=== PATIENT | male | born 1980 | race African-American/Black ===

== ENCOUNTER 2020-02-11 04:00 | Emergency (ER) | payer BC, SELFPAY ==
[2020-02-11 04:31] LABS: #Basophils 0.1 thou/uL (0.0-0.2); #Eosinphils 0.1 thou/uL (0.0-0.7); #Lymphocytes 1.5 thou/uL (1.20-3.40); #Monocytes 0.5 thou/uL (0.11-0.59); #Neutrophils 3.4 thou/uL (1.40-6.50); %Basophils 1.2 % (0.0-1.0); %Eosinophils 2.2 % (0.0-10.0); %Lymphocytes 27.9 % (21.0-51.0); %Monocytes 8.1 % (0.0-10.0); %Neutrophils 60.7 % (42.0-75.0); Mean Corpuscular HGB CONC 33.1 g/dL (32.0-36.0); Mean Corpuscular Hemoglobin 32.3 pg (27.0-31.0); Mean Corpuscular Volume 97.4 fL (78.0-98.0); Platelet Count 221 thou/uL (130-400); Red Blood Cell (RBC) Count 4.03 mill/uL (4.70-6.10); White Blood Cell (WBC) Count 5.5 thou/uL (4.8-10.8)
[2020-02-11 05:05] LABS: ALT (SGPT) 17 U/L (8-55); AST (SGOT) 22 U/L (5-34); Albumin 4.1 g/dL (3.5-5.0); Alkaline Phosphatase 69 U/L (40-110); Anion Gap 11 mmol/L (10-20); BUN (Urea Nitrogen) 13 mg/dL (8.9-20.6); Bilirubin, Total 0.4 mg/dL (0.2-1.2); Calc. Creatinine Clearance 0 mL/min (70-130); Calcium 9.2 mg/dL (7.8-10.44); Carbon Dioxide 23 mmol/L (22-29); Chloride 107 mmol/L (98-107); Estimated GFR-MDRD Greater than 90; Globulin 2.8 g/dL (2.4-3.5); Glucose 99 mg/dL (70-105); Potassium 3.4 mmol/L (3.5-5.1); Protein, Total 6.9 g/dL (6.0-8.3); Sodium 138 mmol/L (136-145)
--- NOTE | 2020-02-11 07:31 | RAD ---
CHEST 1 VIEW: INDICATION: Left-sided chest pain. COMPARISON: Prior exam dated 02/08/2020. FINDINGS: The lungs are clear. Heart size is normal. No pleural effusion is evident. No acute osseous abnorm ality is noted. IMPRESSION: No acute cardiopulmonary abnormality. The examination appears similar to the comparison study. POS: BH
--- NOTE | 2020-02-14 14:53 | EKG ---
Test Reason : Blood Pressure : / mmHG Vent. Rate : 070 BPM Atrial Rate : 070 BPM P-R Int : 138 ms QRS Dur : 084 ms QT Int : 360 ms P-R-T Axes : 061 017 023 degrees QTc Int : 388 ms Normal sinus rhythm with sinus arrhythmia No STEMI Normal ECG Confirmed by LAURIE ROMERO M.D. ([id number]), electronic news gathering editor YAMILETH TRONCOSO ([id number] on 02/14/2020 2:52:47 PM Referred By: Confirmed By:LAURIE ROMERO M.D.
== END 2020-02-11 08:29 | disposition home or self-care (01) ==
LOC: ERS 04:00
DX: R07.89 Other chest pain (principal); F17.210 Nicotine dependence, cigarettes, uncomplicated
CPT/HCPCS: 36415; 71045; 80053; 84484; 85025; 93005

== ENCOUNTER 2022-10-12 23:25 | Emergency (ER) | payer OTHER, BC ==
[~2022-10-12 23:25] MED LIST: Iopamidol-370 76% 500 ML 1 ML ONE
[2022-10-12 23:53] LABS: #Eosinphils 0.1 thou/uL (0.0-0.7); #Lymphocytes 1.8 thou/uL (1.20-3.40); #Monocytes 0.3 thou/uL (0.11-0.59); #Neutrophils 2.8 thou/uL (1.40-6.50); %Basophils 0.8 % (0.0-1.0); %Eosinophils 2.4 % (0.0-10.0); %Lymphocytes 35.4 % (21.0-51.0); %Monocytes 6.8 % (0.0-10.0); %Neutrophils 54.6 % (42.0-75.0); Hemoglobin 14.3 g/dL (14.0-18.0); Mean Corpuscular HGB CONC 33.7 g/dL (32.0-36.0); Mean Corpuscular Hemoglobin 33.8 pg (27.0-31.0); Mean Platelet Volume 7.4 fL (7.4-10.4); Platelet Count 203 10x3/uL (130-400); RBC Distribution Width 12.2 % (11.5-14.5); Red Blood Cell (RBC) Count 4.24 mill/uL (4.70-6.10)
[2022-10-13 00:05] LABS: INR-International Normal Ratio 1.1; PTT 30.4 sec (22.9-36.1); Prothrombin Time 14.2 sec (12.0-14.7)
[2022-10-13 00:14] LABS: ALT (SGPT) 23 U/L (8-55); AST (SGOT) 20 U/L (5-34); Albumin 4.3 g/dL (3.5-5.0); Alcohol Less than 10 mg/dL (Less than 10); Alkaline Phosphatase 64 U/L (40-110); Anion Gap 14 mmol/L (10-20); BUN (Urea Nitrogen) 11 mg/dL (8.9-20.6); Bilirubin, Total 0.7 mg/dL (0.2-1.2); Calc. Creatinine Clearance 0 mL/min (70-130); Calcium 9.8 mg/dL (7.8-10.44); Carbon Dioxide 23 mmol/L (22-29); Chloride 108 mmol/L (98-107); Estimated GFR 86; Globulin 2.8 g/dL (2.4-3.5); Glucose 86 mg/dL (70-105); Potassium 3.7 mmol/L (3.5-5.1); Protein, Total 7.1 g/dL (6.0-8.3); Sodium 141 mmol/L (136-145)
[2022-10-13] MEDS ORDERED: Ketorolac Tromethamine 30 MG/ML VIAL ONE (00:25)
== END 2022-10-13 01:10 | disposition home or self-care (01) ==
LOC: ERS 23:25
DX: S29.012A Strain of muscle and tendon of back wall of thorax, initial encounter (principal); V89.2XXA Person injured in unspecified motor-vehicle accident, traffic, initial encounter; F17.210 Nicotine dependence, cigarettes, uncomplicated
CPT/HCPCS: 36415; 70450; 71045; 71260; 72125; 74177; 80053; 80307; 85025; 85610; 85730; 96374; J1885; Q9967